=== PATIENT | female | born 1995 | race Caucasian/White ===

== ENCOUNTER 2023-11-21 11:38 | Outpatient (CLI) | payer OTHER ==
--- NOTE | 2023-11-21 15:38 | XRAY Report ---
PROCEDURE: Thoracic Spine 2V INDICATIONS: UPPER BACK PAIN TECHNIQUE: 2 views of the thoracic spine were acquired. COMPARISON: Cervical spine plain films from the same date. FINDINGS: Bones: No fractures or dislocations. No suspicious bony lesions. 12 pairs of ribs are noted, and a ppear intact where visualized. Soft tissues: No paravertebral stripe thickening. IMPRESSION: No acute bony abnormality. No significant degenerative change. Reviewed by: Brian Avitia MD on 11/21/2023 3:36 PM PDT Approved by: Brian Avitia MD on 11/21/2023 3:36 PM PDT Station ID: [id number]
--- NOTE | 2023-11-21 15:45 | XRAY Report ---
PROCEDURE: Cervical Spine 2-3V INDICATIONS: NECK PAIN TECHNIQUE: 3 view(s) of the cervical spine were acquired. COMPARISON: None. FINDINGS: Bones: No fractures or dislocations to the T1 level. The lateral masses of C1 appear intact on the odontoid view. No suspicious bony lesions. Degenerative spondylitic changes centered at C6-C7 with chronic disc height loss and anterior osteophyte and uncovertebral joint hypertrophy. Soft tissues: No prevertebral soft tissue swelling. IMPRESSION: 1. No acute bony abnormality. 2. Cervical spondylosis centered at C6-C7. Reviewed by: Brian Avitia MD on 11/21/2023 3:44 PM PDT Approved by: Brian Avitia MD on 11/21/2023 3:44 PM PDT Station ID: [id number]
== END 2023-11-21 11:39 | disposition home or self-care (01) ==
LOC: DI.N 11:38
PROVIDERS: ATTEND Family Medicine
DX: M47.812 Spondylosis without myelopathy or radiculopathy, cervical region (principal)